=== PATIENT | male | born 1995 | race American Indian/Alaskan Native ===

== ENCOUNTER 2019-04-17 11:26 | Emergency (ER) | payer OTHER ==
--- NOTE | 2019-04-17 11:44 | Event Note ---
ED Screening Note Date of service: 04/17/19 Time: 11:35 ED Screening Note: 23 y/o male comes for htn. Reports that he only comes in for HTN refills. Does not see a provider for routine chronic disease management. This initial assessment/diagnostic orders/clinical plan/treatment(s) is/are grubbs bject to change based on patients health status, clinical progression and re- assessment by fellow clinical providers in the ED. Further treatment and workup at subsequent clinical providers discretion. Patient/guardian urged not to elope from the ED as their condition may be serious if not clinically assessed and managed. Initial orders include:
--- NOTE | 2019-04-17 12:18 | Emergency Department Report ---
ED General Adult HPI - General Chief complaint: High BP Stated complaint: HBP 186/120 Time Seen by Provider: 04/17/19 12:12 Source: patient Mode of arrival: Ambulatory Limitations: No Limitations - History of Present Illness Initial comments: 23 y/o male comes for htn. Presents to the ED with elevated blood pressure. He has been without his blood pressure pills about a month. 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 Reports that he only comes in for HTN refills. Does not see a provider for routine chronic disease management. - Related Data Previous Rx's Medication Instructions Recorded Last Taken Type Lisinopril/Hydrochlorothiazide 1 tab PO QDAY 30 Days #30 tab 04/17/19 Unknown Rx [Zestoretic 20-25 mg] Allergies Allergy/AdvReac Type Severity Reaction Status Date / Time No Known Allergies Allergy Verified 04/17/19 11:28 ED Review of Systems ROS: Stated complaint: HBP 186/120 Other details as noted in HPI Comment: All other systems reviewed and negative ENT: denies: ear pain Cardiovascular: denies: chest pain Gastrointestinal: denies: abdominal pain Neurological: denies: headache, weakness ED Past Medical Hx - Past Medical History Hx Hypertension: Yes Hx Asthma: Yes - Social History Smoking Status: Former Smoker Substance Use Type: None - Medications Home Medications: Home Medications Medication Instructions Recorded Confirmed Last Taken Type Lisinopril/Hydrochlorothiazide 1 tab PO QDAY 30 Days #30 tab 04/17/19 Unknown Rx [Zestoretic 20-25 mg] ED Physical Exam - General Limitations: No Limitations General appearance: alert, in no apparent distress - Head Head exam: Present: atraumatic, normocephalic - Eye Eye exam: Present: normal appearance, PERRL, EOMI Pupils: Present: normal accommodation - ENT ENT exam: Present: normal exam - Neck Neck exam: Present: normal inspection - Respiratory Respiratory exam: Present: normal lung sounds bilaterally - Cardiovascular Cardiovascular Exam: Present: regular rate, normal rhythm - GI/Abdominal GI/Abdominal exam: Present: soft, normal bowel sounds - Extremities Exam Extremities exam: Present: normal inspection - Back Exam Back exam: Present: normal inspection - Neurological Exam Neurological exam: Present: alert, oriented X3 - Psychiatric Psychiatric exam: Present: normal affect - Skin Skin exam: Present: warm ED Course Vital Signs 04/17/19 04/17/19 04/17/19 11:35 13:22 13:27 Temperature 97.8 F Pulse Rate 85 73 Respiratory 20 20 Rate Blood Pressure 180/110 147/111 Blood Pressure 174/111 [Left] O2 Sat by Pulse 99 98 Oximetry 04/17/19 04/17/19 04/17/19 14:46 15:31 15:47 Temperature Pulse Rate 86 Respiratory Rate Blood Pressure 168/105 168/105 144/94 Blood Pressure [Left] O2 Sat by Pulse Oximetry ED Medical Decision Making - Lab Data Result diagrams: 04/17/19 Unknown 04/17/19 Unknown - Medical Decision Making In ED patient received clonidine 0.2 mg, Procardia 90 mg, and labetalol 20 mg, which they've a low blood pressure. Patient denies any headache, change in vision, nausea, vomiting. DC home back on home medicine regiment. Critical care attestation.: If time is entered above; I have spent that time in minutes in the direct care of this critically ill patient, excluding procedure time. ED Disposition Clinical Impression: Labile hypertension Disposition: DC-01 TO HOME OR SELFCARE Is pt being admited?: No Does the pt Need Aspirin: No Condition: Stable Instructions: Hypertension (ED) Prescriptions: Lisinopril/Hydrochlorothiazide [Zestoretic 20-25 mg] 1 tab PO QDAY 30 Days #30 tab Referrals: CLIFFORD STEVEN MD [Primary Care Provider] - 3-5 Days
[2019-04-17] MEDS ORDERED: PROCARDIA XL PO ONE (13:00)
[2019-04-17] MEDS ORDERED: CATAPRES PO ONE (13:22)
[2019-04-17] MEDS ORDERED: APRESOLINE PO ONE (15:02)
[2019-04-17] MEDS ORDERED: VASOTEC IV ONE (15:04)
[2019-04-17] MEDS ORDERED: NORMODYNE IV ONE (15:05)
[2019-04-17 15:32] LABS: Basophils # (Auto) 0.2 K/mm3 (0.0-0.1); Basophils % (Auto) 1.2 % (0.0-1.8); Eosinophils # (Auto) 0.5 K/mm3 (0.0-0.4); Eosinophils % (Auto) 3.6 % (0.0-4.3); Hematocrit 45.6 % (35.5-45.6); Hemoglobin 15.6 gm/dl (11.8-15.2); Lymphocytes # (Auto) 2.5 K/mm3 (1.2-5.4); Lymphocytes % (Auto) 17.7 % (13.4-35.0); Mean Corpuscular HGB Conc 34 % (32-34); Mean Corpuscular Volume 93 fl (84-94); Monocytes % (Auto) 7.1 % (0.0-7.3); Platelet Count 383 K/mm3 (140-440); Red Blood Count 4.93 M/mm3 (3.65-5.03)
[2019-04-17 15:48] VITALS: BP 144/94
[2019-04-17 15:49] LABS: Alanine Aminotransferase 27 units/L (7-56); Albumin 4.3 g/dL (3.9-5); BUN/Creatinine Ratio 14; Blood Urea Nitrogen 13 mg/dL (9-20); Calcium 9.6 mg/dL (8.4-10.2); Hemolysis Index 44
== END 2019-04-17 16:00 | disposition home or self-care (01) ==
LOC: ED 11:26
DX: I10 Essential (primary) hypertension (principal); E11.9 Type 2 diabetes mellitus without complications; Z87.891 Personal history of nicotine dependence; Z79.899 Other long term (current) drug therapy
CPT/HCPCS: 36415; 80053; 85025; 96374; 99283

== ENCOUNTER 2019-10-15 10:54 | Emergency (ER) | payer OTHER ==
[2019-10-15 11:02] VITALS: BP 184/95
== END 2019-10-15 19:04 | disposition left against medical advice (07) ==
LOC: ED 10:54
DX: I10 Essential (primary) hypertension (principal); Z53.21 Procedure and treatment not carried out due to patient leaving prior to being seen by health care provider